=== PATIENT | male | born 1960 | race Caucasian/White ===

== ENCOUNTER 2017-02-21 10:20 | Day surgery (SDC) | payer BC ==
[~2017-02-21 10:20] MED LIST: Lactated Ringers 1,000 ML IV SCH
--- NOTE | 2017-02-21 12:45 | PCM.PREANE ---
Preanesthetic Assessment - Anesthesia/Transfusion/Family Hx Anesthesia History: Prior Anesthesia Without Reaction Other Type of Anesthesia Reaction Comment: states was hard to wake up after appendectomy Family History of Anesthesia Reaction: No Transfusion History: No Prior Transfusion(s) Intubation History: Unknown - Review of Systems General: No Symptoms Pulmonary: No Symptoms Cardiovascular: No Symptoms Gastrointestinal: No Symptoms, Other (family history of colon cancer) Neurological: No Symptoms Other: Reports: None - Physical Assessment O2 Sat by Pulse Oximetry: 98 Respiratory Rate: 16 Vital Signs: Last Vital Signs Temp 37.3 C 02/21/17 11:15 Pulse 64 02/21/17 11:15 Resp 16 02/21/17 11:15 BP 107/64 02/21/17 11:15 Pulse Ox 98 02/21/17 11:15 Height: 1.78 m Weight: 110.223 kg ASA Class: 2 Mental Status: Alert & Oriented x3 Airway Class: Mallampati = 2 Dentition: Reports: Normal Dentition (grinded edges of front teeth) Thyro-Mental Finger Breadths: 3 Mouth Opening Finger Breadths: 3 ROM/Head Extension: Full Lungs: Clear to Auscultation, Normal Respiratory Effort Cardiovascular: Regular Rate, Regular Rhythm - Allergies Allergies/Adverse Reactions: Allergies Allergy/AdvReac Type Severity Reaction Status Date / Time No Known Allergies Allergy Verified 02/16/17 07:47 - Blood Blood Available: No - Anesthesia Plan Pre-Op Medication Ordered: None - Acknowledgements Anesthesia Type Planned: MAC Pt an Appropriate Candidate for the Planned Anesthesia: Yes Alternatives and Risks of Anesthesia Discussed w Pt/Guardian: Yes Pt/Guardian Understands and Agrees with Anesthesia Plan: Yes PreAnesthesia Questionnaire HEENT History: Reports: None Cardiovascular History: Reports: Hypertension Gastrointestinal History: Reports: Other (See Below) Other Gastrointestinal History: occasional heartburn Musculoskeletal History: Reports: Arthritis, Back Pain, Chronic Endocrine/Metabolic History: Reports: Obesity/BMI 30+ - Past Surgical History Head Surgeries/Procedures: Reports: None HEENT Surgical History: Reports: Tonsillectomy GI Surgical History: Reports: Appendectomy, Hernia, Inguinal (right) Musculoskeletal Surgical History: Reports: Shoulder Surgery Other Musculoskeletal Surgeries/Procedures:: hx partial left shoulder joint replacement - SUBSTANCE USE Tobacco Use Within Last Twelve Months: Snuff/Dip Days Per Week of Alcohol Use: 7 Number of Drinks Per Day: 1 Total Drinks Per Week: 7 Recreational Drug Use History: No - HOME MEDS Home Medications: Home Meds Lisinopril 40 mg PO DAILY 02/16/17 [History] Olmesartan/Hydrochlorothiazide [Benicar HCT 40-12.5 MG] 1 tab PO DAILY 02/16/17 [History] - CURRENT (IN HOUSE) MEDS Current Meds: Current Medications Lactated Ringer's (Ringers, Lactated) 1,000 mls @ 125 mls/hr IV ASDIRECTED [facility] Last Admin: 02/21/17 11:32 Dose: 125 mls/hr
[2017-02-21] MEDS ORDERED: fentaNYL 100 MCG/2 ML SDV ONE (12:53)
[2017-02-21] MEDS ORDERED: Midazolam 1 MG/ML 2 ML SDV ONE (12:53)
[2017-02-21] MEDS ORDERED: Propofol 200 MG/20 ML SDV ONE (13:07)
--- NOTE | 2017-02-21 13:56 | PCM.OPNOTE ---
- General Post-Op/Procedure Note Date of Surgery/Procedure: 02/21/17 Operative Procedure(s): Colonoscopy with snare, ascending colon polypectomy, snare descending colon polypectomy and biopsy large sigmoid polyp at 37 cm. Pre Op Diagnosis: Desire for colorectal cancer screening Post-Op Diagnosis: Ascending colon polyp. Descending colon polyp. Large sigmoid polyp at 37 cm. Anesthesia Technique: MAC (ASA II) Primary Surgeon: Sarthak Hawkins Condition: Good Free Text/Narrative:: Dictation [id number] CPT CODE [id number]
[2017-02-21] MEDS ORDERED: Lactated Ringers 1,000 ML IV SCH (14:00)
--- NOTE | 2017-02-21 14:06 | PCM.POSTAN ---
POST ANESTHESIA ASSESSMENT - MENTAL STATUS Mental Status: Alert, Oriented - RESPIRATORY Respiratory Status: Respiratory Rate WNL, Airway Patent, O2 Saturation Stable - CARDIOVASCULAR CV Status: Pulse Rate WNL, Blood Pressure Stable - GASTROINTESTINAL GI Status: No Symptoms - PAIN Pain Score: 0 - POST OP HYDRATION Hydration Status: Adequate & Stable - OBSERVATIONS Free Text/Narrative:: no0 anesthesia problems
[2017-02-21 14:19] VITALS: BP 119/76
--- NOTE | 2017-02-22 11:06 | OR ---
SURGEON: Sarthak Hawkins M.D. DATE OF PROCEDURE: 02/21/2017 OPERATION PERFORMED: Colonoscopy with snare polypectomy, ascending colon polyp and descending colon polyp, and biopsy large sigmoid polyp at 37 cm. PREOPERATIVE DIAGNOSIS: Desire for colorectal cancer screening. POSTOPERATIVE DIAGNOSIS: Polyps as described above. ANESTHESIA: MAC. ASA CLASSIFICATION: II. DESCRIPTION OF PROCEDURE: The patient was taken to the endoscopy room, positioned on the endoscopy table in the left lateral decubitus position. Time-out was called for appropriate identification of the patient and procedure. Monitored anesthesia care was provided. The colonoscope was inserted into the rectum and advanced with minimal difficulty to the cecum, where the colonoscope was retroflexed to visualize the ascending colon from below then straightened and slowly withdrawn. One polyp was encountered in the ascending colon and this was removed with the snare electrocautery and recovered. The remainder of the ascending colon, hepatic flexure, transverse colon, splenic flexure showed no tumors, polyps, diverticula, or angiodysplastic changes. A second polyp was encountered in the sigmoid colon at approximately 70 cm. This was also removed with the snare electrocautery and recovered. A third very large polyp with a very thick stalk was noted 37 cm from the anal verge. Biopsies of this area were obtained. I did not feel it would be safe to try and remove a large polyp like that here without clips and possibly the ability to inject saline into the submucosa. We, therefore, marked the site of this polyp with several milliliters of Endo Spot injected around the polyp and into the polyp. The colonoscope was then withdrawn to the rectum and retroflexed to visualize the anal orifice from above. No tumors, polyps, or acute hemorrhoidal changes were noted. The colonoscope was then straightened, the rectum aspirated, and the colonoscope removed. The patient tolerated the procedure well. His has been informed of this. Once we have the biopsy reports back, referral will be made to Dr. Nabeel Adams at [facility] in [place] for endoscopic removal. TIGIST / RUTH /[id number]
== END 2017-02-21 14:40 | disposition home or self-care (01) ==
LOC: MW.SDS 10:20
PROVIDERS: ATTEND Surgery
DX: Z12.11 Encounter for screening for malignant neoplasm of colon (principal); D12.2 Benign neoplasm of ascending colon; D12.4 Benign neoplasm of descending colon; D12.5 Benign neoplasm of sigmoid colon; I10 Essential (primary) hypertension; M19.90 Unspecified osteoarthritis, unspecified site; E66.9 Obesity, unspecified; F17.290 Nicotine dependence, other tobacco product, uncomplicated; Z79.899 Other long term (current) drug therapy; Z96.612 Presence of left artificial shoulder joint; Z90.49 Acquired absence of other specified parts of digestive tract; Z90.89 Acquired absence of other organs; Z98.890 Other specified postprocedural states; Z68.34 Body mass index [BMI] 34.0-34.9, adult
CPT/HCPCS: 45380; 45381; 45385; 88305; J2250; J3010; J7120; J2704